=== PATIENT | male | born 1995 | race American Indian/Alaskan Native ===

== ENCOUNTER 2020-04-08 13:29 | Emergency (ER) | payer SELFPAY ==
[2020-04-08 13:48] VITALS: BP 142/87
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
== END 2020-04-08 14:32 | disposition left against medical advice (07) ==
LOC: ED 13:29
DX: M25.512 Pain in left shoulder (principal); M25.532 Pain in left wrist; M25.552 Pain in left hip; Z53.21 Procedure and treatment not carried out due to patient leaving prior to being seen by health care provider; V49.49XA Driver injured in collision with other motor vehicles in traffic accident, initial encounter; Y93.89 Activity, other specified; Y92.410 Unspecified street and highway as the place of occurrence of the external cause; Y99.8 Other external cause status